=== PATIENT | female | born 1955 | race Caucasian/White ===

== ENCOUNTER 2017-04-06 10:09 | Inpatient (IN) | payer BC ==
[2017-02-26 11:56] VITALS: BMI 42.0
--- NOTE | 2017-02-26 12:21 | PAT Medication Instructions ---
Service Date Feb 26, 2017. Current Home Medication List Cholecalciferol (Vitamin D3), 1,000 UNITS PO BID Citalopram Hydrobromide (Citalopram Hydrobromide), 1 TAB PO QPM Docusate Sodium (Stool Softener), 200 MG PO QAM Lisinopril/Hctz (Zestoretic 20MG/25MG), 1 TAB PO QAM Naproxen (Naprosyn), 250 MG PO BID Psyllium (Metamucil), 1 DOSE PO QAM Medication Instructions For Your Scheduled Surgery Naproxen (Naprosyn), 250 MG PO BID (check with surgeon for instructions) - Hold the following medications the morning of surgery: Psyllium (Metamucil), 1 DOSE PO QAM Lisinopril/Hctz (Zestoretic 20MG/25MG), 1 TAB PO QAM Docusate Sodium (Stool Softener), 200 MG PO QAM Cholecalciferol (Vitamin D3), 1,000 UNITS PO BID - Take the following medications as scheduled the night before surgery: Citalopram Hydrobromide (Citalopram Hydrobromide), 1 TAB PO QPM Cholecalciferol (Vitamin D3), 1,000 UNITS PO BID If you have any questions please call us at [phone] (Claire Seals PA-C) or [phone] or [phone]
[2017-02-26 12:43] LABS: HEMATOCRIT 38.4 % (37-47); MEAN CELL VOLUME 87.9 fL (80-100); MEAN CORPUSCULAR HEMOGLOBIN 29.3 pg (25-34); MEAN CORPUSCULAR HGB CONC 33.3 g/dl (32-36); MEAN PLATELET VOLUME 8.9 fL (7.4-10.4); PLATELET COUNT 370 K/uL (130-400); RED BLOOD COUNT 4.37 M/uL (4.2-5.4); WHITE BLOOD COUNT 9.13 K/uL (4.8-10.8)
--- NOTE | 2017-02-26 12:54 | DIAGNOSTIC IMAGING REPORT ---
CHEST 2 VIEWS ROUTINE CLINICAL HISTORY: PAT preoperative evaluation COMPARISON STUDY: No previous studies for comparison. FINDINGS: The bones soft tissues and hemidiaphragms are normal. The cardiomediastinal silhouette is normal. The lungs are clear. The pulmonary vasculature is normal. IMPRESSION: Negative chest. Electronically signed by: Heron Montaño M.D. 02/26/2017 12:52 PM Dictated Date/Time: 02/26/2017 12:52 PM
[2017-02-26 12:58] LABS: PARTIAL THROMBOPLASTIN RATIO 1.2; PROTHROMBIN TIME (PATIENT) 10.3 SECONDS (9.0-12.0)
[2017-02-26 13:06] LABS: BASO % 0.8 %; BASO ABS # 0.07 K/uL (0-0.2); COMPLETE YES; EOS % 1.9 %; IG% 0.3 %; LYMPH % 29.2 %; LYMPH ABS # 2.67 K/uL (1.2-3.4); MONO % 6.6 %; NEUT % 61.2 %
[2017-02-26 13:14] LABS: BUN/CREATININE RATIO 25.2 (10-20); CALCIUM 9.2 mg/dl (8.5-10.1); CREATININE 0.79 mg/dl (0.60-1.20); POTASSIUM 4.1 mmol/L (3.5-5.1)
--- NOTE | 2017-04-03 21:59 | HISTORY & PHYSICAL EXAMINATION ---
DATE OF ADMISSION: 04/06/2017 CHIEF COMPLAINT: 1. Left hip pain. 2. Bilateral knee pain and DJD. HISTORY OF PRESENT ILLNESS: The patient is a 62-year-old female who has had a several year history of multiple lower extremity joint aches and pains. She has both knee pain and left hip. She has been managed by real estate operations manager up to this point. Pain has gotten more progressive and persistent over time. She does respond some to the knee injections. Hip has gotten worse over time. She describes groin pain and thigh pain and buttock pain. The more she walks, the more she limps. She would like to begin surgical treatment of these issues. We did have a long discussion as far as treatment, what to treat first, the knee or the hips and she has elected to proceed with total hip replacement based on my guidance. Certainly by managing her hip it may take away some of her knee pain. PAST MEDICAL HISTORY: 1. Hypertension. 2. Sleep apnea. 3. Kidney stones. 4. Obesity with a BMI of 42. PAST SURGICAL HISTORY: 1. Tubal ligation. 2. Bowel resection. 3. Lithotripsy. ALLERGIES: None. CURRENT MEDICINES: 1. Lisinopril/hydrochlorothiazide 20/25 once a day. 2. Citalopram 20 mg a day for anxiety. 3. Glucosamine chondroitin. 4. Magnesium. 5. Vitamin D3. 6. Naprosyn. 7. Metamucil. 8. Stool softener. SOCIAL HISTORY: A 62-year-old white female patient from [place]. She works as a financial legal assistant. She does not smoke. FAMILY HISTORY: Significant for diabetes, esophageal cancer, throat cancer and breast cancer. REVIEW OF SYSTEMS: Negative for diabetes, neurologic problems, vascular problems or bleeding disorders. Denies any chest pain. No shortness of breath. No history of DVT or PE. PHYSICAL EXAMINATION: GENERAL: Reveals a healthy pleasant, middle-aged female. She looks to be in pretty good health. HEENT: Benign. NECK: Supple. No lymphadenopathy. LUNGS: Clear to auscultation. HEART: Has a regular rate and rhythm. ABDOMEN: Soft, nontender, nondistended. EXTREMITIES: Grossly neurovascularly intact except as follows: Examination of both lower extremities reveals patient walks with an antalgic gait. Examination of the knees reveals valgus alignment to her right knee and small knee effusion. Range of motion is 5-125. Little crepitance with motion. Examination of the left knee reveals slight varus alignment. Tenderness medially. Small knee effusion. Range of motion 5-125. Examination of left hip reveals leg lengths to be pretty equal. She does have quite a bit of stiffness with pain with hip motion. She can internally rotate to about neutral. Negative straight leg raise. She is neurologically intact. X-RAYS: X-rays of both her left hip and both knees were reviewed. X-rays of the hip reveal advanced left hip DJD. She has complete loss of her superior joint space. Bone density looks pretty good. X-rays of the knee reveal moderate to advanced bilateral knee DJD. The right side is probably a little bit worse than the left. She has got complete loss of joint space in the lateral side in the right side. 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 Advanced left hip degenerative joint disease. 2. Bilateral knee degenerative joint disease, right side a bit worse than the left. PLAN: We talked about treatment options. We had a long discussion as far as what joint to do first and after extensive discussion, we elected to proceed with a left total hip replacement. We will take her to the operating room and do a left total hip replacement. The risks and benefits of this procedure were explained to patient including but not limited to DVT, PE, , infection, neurological injury, vascular injury, bleeding problem, pain, limited range of motion, stiffness, failure to relieve symptoms, incomplete relief of symptoms, need for further surgery in the future, fracture, leg length inequality, nerve palsy, dislocation, etc. The patient understands and desires to proceed. Informed consent was obtained. We did choose the hip as we can still conservatively manage the knee pain more successfully and more easily. As far as discharge plans, she will likely be discharged to home within the [facility] service. She knows to hold her lisinopril/hydrochlorothiazide the morning of surgery.
[2017-04-06] VITALS (14 sets, daily range): BP systolic 100–124; BP diastolic 65–83; PULSE 90–97; TEMP 34.8–37; O2SAT 92–100; Ht 167.6 cm; Wt 118.6 kg
[~2017-04-06] VITALS: Ht 167.6 cm; Wt 118.6 kg
[~2017-04-06 10:09] MED LIST: ACETAMINOPHEN 500 MG TAB PO SCH; BUPIVACAINE 0.5 % 5 MG/1 ML PF 10ML VIAL ONE; CEFAZOLIN 2000 MG/60 ML D5W 60 ML IV SCH; CHOL1CAP57 PO; CITA20TA4 PO; DOCU100C PO; FAMOTIDINE 20 MG TAB PO SCH; GABAPENTIN 300 MG CAP PO SCH; LACTATED RINGER'S 1000ML 1,000 ML IV SCH; LACTATED RINGER'S 1000ML IV SCH; LACTATED RINGER'S 500 ML IV SCH; LISI-788 PO; METOCLOPRAMIDE HCL 10 MG TAB PO SCH; MIDAZOLAM HCL 1 MG/ML 2ML VIAL ONE; NAPR1TAB48 PO; PSYL0.524 PO; SCOPOLAMINE 1.5 MG TDSY TD SCH; TRAMADOL HCL 50 MG TAB PO SCH; TRANEXAMIC ACID INJ 1,000 MG in SODIUM CHLORIDE 0.9% 100ML 100 ML IV SCH
[2017-04-06] MEDS ORDERED: PROPOFOL IV EMULSION 10 MG/ML 20 ML VIAL IV ONE ×2 (10:10→13:39)
--- NOTE | 2017-04-06 10:39 | History & Physical Bridge Note ---
H&P Re-Evaluation Bridge Note: I have examined the patient, reviewed the History & Physical and in the interval since the performance of the History & Physical I have noted the following changes of clinical significance: No changes noted
[2017-04-06] MEDS ORDERED: HYDROmorphone INJ 2 MG/ML SYR/VIAL IV PRN (12:15)
[2017-04-06] MEDS ORDERED: EpHEDrine SULFATE INJ 50 MG/ML AMP IV PRN ×2 (12:15→13:15)
[2017-04-06] MEDS ORDERED: NALOXONE HCL 0.4 MG/1 ML VIAL/CARP IV PRN ×2 (12:15→13:15)
[2017-04-06] MEDS ORDERED: PHENYLEPHRINE 100MCG/ML 5ML SYR IV PRN (12:15)
[2017-04-06] MEDS ORDERED: FENTANYL CITRATE INJ 50 MCG/1 ML 2 ML VIAL IV PRN (12:15)
[2017-04-06] MEDS ORDERED: FLUMAZENIL 0.1 MG/1 ML 10 ML VIAL IV PRN (12:15)
[2017-04-06] MEDS ORDERED: LABETALOL HCL IV 5 MG/ML 20ML IV PRN (12:15)
[2017-04-06] MEDS ORDERED: MEPERIDINE HCL 25 MG/ML CARP IV PRN ×2 (12:15→13:15)
[2017-04-06] MEDS ORDERED: ATROPINE SULFATE 0.1 MG/ML 5ML SYR IV PRN (12:15)
[2017-04-06] MEDS ORDERED: ONDANSETRON INJ 2 MG/ML 2 ML VIAL IV PRN ×2 (12:15→13:15)
[2017-04-06] MEDS ORDERED: BUPIVACAINE/EPINEPHRINE 0.5% MPF 1:200,000 30 ML VIAL ONE (12:28)
[2017-04-06] MEDS ORDERED: BACITRACIN 50000 UNIT VIAL ONE (12:28)
[2017-04-06] MEDS ORDERED: MoRPHine SULFATE PF 1 MG/ML 10 ML AMP/VIAL ONE (12:30)
[2017-04-06] MEDS ORDERED: FENTANYL CITRATE INJ 50 MCG/1 ML 2 ML VIAL ONE (12:31)
[2017-04-06] MEDS ORDERED: MIDAZOLAM HCL 1 MG/ML 2ML VIAL ONE ×2 (12:58→13:09)
[2017-04-06] MEDS ORDERED: NALOXONE HCL INJ 0.08 MG in SYRINGE 1.8 ML IV PRN (13:13)
[2017-04-06] MEDS ORDERED: SODIUM CHLORIDE 0.9% 1000ML 1,000 ML IV PRN (13:13)
[2017-04-06] MEDS ORDERED: LACTATED RINGER'S 1000ML 500 ML IV PRN (13:13)
[2017-04-06] MEDS ORDERED: NALOXONE HCL INJ 1 MG in SODIUM CHLORIDE 0.9% 1000ML 1,000 ML IV PRN (13:13)
[2017-04-06] MEDS ORDERED: NO NARCOTICS OR SEDATIVES SCH (13:15)
[2017-04-06] MEDS ORDERED: MoRPHine SULFATE PF 1 MG/ML 10 ML AMP/VIAL EPI PRN (13:15)
[2017-04-06] MEDS ORDERED: KETOROLAC TROMETHAMINE 30 MG/ML VIAL IV. PRN (13:15)
[2017-04-06] MEDS ORDERED: NALBUPHINE HCL INJ 10 MG/ML AMP IV PRN (13:15)
[2017-04-06] MEDS ORDERED: MoRPHine SULFATE 2 MG/ML CARP IV PRN (13:15)
[2017-04-06] MEDS ORDERED: DiphenhydrAMINE HCL 50 MG/ML VIAL IV PRN (13:15)
[2017-04-06] MEDS ORDERED: EpHEDrine SULFATE INJ 50 MG/ML AMP ONE (13:20)
[2017-04-06] MEDS ORDERED: PHENYLEPHRINE 100MCG/ML 5ML SYR ONE (13:39)
--- NOTE | 2017-04-06 14:35 | [facility] Post Operative Brief Note ---
Immediate Operative Summary Operative Date April 06, 2017. Pre-Operative Diagnosis Left Hip Degenerative Joint Disease Post-Operative Diagnosis Left Hip Degenerative Joint Disease Procedure(s) Performed Left Total Hip Arthroplasty Surgeon Dr. Tyson Rankin Drywall Installer Surgeon(s) Klever Colon PA-C Estimated Blood Loss 400ML Findings Left Hip DJD Fluids (cc crystalloids) 2000 cc Specimens A. Left Femoral Head Drains None Anesthesia Spinal Complication(s) None Disposition Recovery Room / PACU
[2017-04-06] MEDS ORDERED: SILVER SULFADIAZINE 1% CR 50 GM JAR EXT PRN (14:45)
[2017-04-06] MEDS ORDERED: METOCLOPRAMIDE HCL INJ 5 MG/ML 2 ML VIAL IV PRN (14:45)
[2017-04-06] MEDS ORDERED: ALUMINUM/MAGNESIUM/SIMETH (MAALOX MAX) 30 ML UDC PO PRN (14:45)
[2017-04-06] MEDS ORDERED: BISACODYL 10 MG SUPP PR PRN (14:45)
[2017-04-06] MEDS ORDERED: MAGNESIUM HYDROXIDE SUSP 30 ML UDC PO PRN (14:45)
--- NOTE | 2017-04-06 15:06 | DIAGNOSTIC IMAGING REPORT ---
LEFT PELVIS/UNILATERAL HIP 1 VIEW CLINICAL HISTORY: Postoperative evaluation. COMPARISON: None FINDINGS: Alignment of the total left hip arthroplasty is anatomic. There is an acetabular screw. Skin ryan are present. There is no periprosthetic fracture or unexpected radiopaque foreign body. Radiodense material projecting over the pelvis is of doubtful significance. IMPRESSION: Expected findings following total left hip arthroplasty. Electronically signed by: Jerry Alvarez M.D. 04/06/2017 3:05 PM Dictated Date/Time: 04/06/2017 3:03 PM
--- NOTE | 2017-04-06 15:09 | Anesthesiology Progress Note ---
Anesthesia Post Op Note Date & Time April 06, 2017 at 15:09 Vital Signs Pain Intensity: 0 Vital Signs Past 12 Hours Date Time Temp Pulse Resp B/P Pulse Ox O2 Delivery O2 Flow Rate FiO2 04/06/17 15:05 93 18 120/81 95 Nasal Cannula 2 04/06/17 14:55 100 16 95/68 98 Nasal Cannula 2 04/06/17 14:45 97 16 111/66 99 Nasal Cannula 2 04/06/17 14:37 36.1 102 14 112/83 96 Nasal Cannula 2 04/06/17 10:37 37 90 18 124/83 97 Room Air Notes Mental Status: alert / awake / arousable, participated in evaluation Pt Amnestic to Procedure: Yes Nausea / Vomiting: adequately controlled Pain: adequately controlled Airway Patency, RR, SpO2: stable & adequate BP & HR: stable & adequate Hydration State: stable & adequate Anesthetic Complications: no major complications apparent
[2017-04-06] MEDS: D5W AND 1/2NSS + 20MEQ KCL 1,000 ML IV SCH ×2 (16:38→21:33)
[2017-04-06] MEDS: CHECK SCOPOLAMINE PATCH PLACEMENT SCH ×2 (16:38→23:35)
[2017-04-06] MEDS ORDERED: TRANEXAMIC ACID INJ 1,000 MG in SODIUM CHLORIDE 0.9% 100ML 100 ML IV ONE (18:00)
[2017-04-06] MEDS: FERROUS GLUCONATE 324 MG TAB PO SCH (18:09)
[2017-04-06] MEDS: KETOROLAC TROMETHAMINE 30 MG/ML VIAL IV. SCH ×2 (18:26→23:35)
[2017-04-06] MEDS: CEFAZOLIN IV 2,000 MG in DEXTROSE 5% 50ML 50 ML IV SCH (19:01)
--- NOTE | 2017-04-06 20:07 | PROGRESS NOTE ---
DATE: 04/06/2017 SUBJECTIVE: A 62-year-old female postop from a left total hip replacement. She is doing well. Not had any pain yet. No chest pain or shortness of breath. Not feeling dizzy or lightheaded. OBJECTIVE: VITAL SIGNS: Temperature 36.5. Vital signs stable. GENERAL: Reveals a pleasant, middle-aged female. She is sitting up in her bed and talking to her family. She looks comfortable. LUNGS: Clear to auscultation. HEART: Regular rate and rhythm. ABDOMEN: Soft, nontender, nondistended. EXTREMITIES: Grossly neurovascularly intact except as follows: Examination of the left lower extremity reveals the leg to be well aligned. Dressing is clean, dry and intact. She can dorsiflex and plantarflex her foot appropriately. She is neurologically intact. X-RAYS: X-rays of the left hip from recovery room were reviewed. It shows a left uncemented total hip arthroplasty. Components looked to be in good position. No signs of problems. ASSESSMENT: A 62-year-old female postop from a left hip replacement, doing well. Pain is controlled. She is neurologically intact. Hip is located. PLAN: 1. DVT prophylaxis including thigh-high TEDs, SCDs, and aspirin twice a day. 2. PT/OT. Weightbearing as tolerated. Left total hip protocol. 3. Pain control, doing well with current pain regimen. 4. IV antibiotics x24 hours. 5. Disposition: She is waiting to see how she does. She is interested in trying to go to [facility] for rehabilitation visit. Will check with social insurance analyst tomorrow to see what her coverage is in the likelihood of that.
[2017-04-06] MEDS ORDERED: DOCUSATE SODIUM 100 MG CAP PO SCH (21:00)
[2017-04-06] MEDS: CITALOPRAM 20 MG TAB PO SCH (21:32)
[2017-04-06] MEDS: ACETAMINOPHEN 500 MG TAB PO SCH (21:32)
[2017-04-06] MEDS: CHOLECALCIFEROL 1000 INTER.UNIT TAB PO SCH (21:32)
[2017-04-06] MEDS: ASPIRIN 325 MG ECTAB PO SCH (21:33)
[2017-04-07] VITALS (14 sets, daily range): BP systolic 105–145; BP diastolic 65–77; PULSE 85–94; TEMP 36.5–36.8; O2SAT 93–98
[2017-04-07] MEDS: CEFAZOLIN IV 2,000 MG in DEXTROSE 5% 50ML 50 ML IV SCH (01:36)
--- NOTE | 2017-04-07 02:45 | OPERATIVE REPORT ---
DATE OF OPERATION: 04/06/2017 SURGEON: Tyson Rankin MD. DATA WAREHOUSING MANAGER: ANAID Mccord. PREOPERATIVE DIAGNOSIS: Left hip degenerative joint disease. POSTOPERATIVE DIAGNOSIS: Same. PROCEDURE PERFORMED: Left uncemented ceramic highly cross-linked polyethylene total hip arthroplasty. COMPLICATIONS: None. ESTIMATED BLOOD LOSS: 400 mL FLUID REPLACEMENT: 2000 mL crystalloid fluid replacement. ANESTHESIA: Duramorph spinal. DRAINS: None. SPECIMEN: Left femoral head sent for pathology. OPERATIVE INDICATIONS: The patient is a 62-year-old female who has had a very long history of multiple lower extremity muscle aches, pains and arthritic symptoms. She has been managed by rural sociologist with pretty aggressive treatment over the years. This has failed overtime. She has had both hip and knee arthritis. The left hip seemed to be the worse and she has elected to proceed with total hip arthroplasty. OPERATIVE FINDINGS: Operative findings revealed advanced left hip DJD. She had grade 4 [id number] disease of the femoral head and acetabulum. She had a moderate size joint effusion. She had a large medial osteophyte. OPERATIVE IMPLANTS: Operative implants consisted of: 1. Biomet G7 size 54 mm acetabular shell. 2. 6.5 cancellous acetabular screws, 1 of 35 mm length and 1 of 20 mm length. 3. An apex hole eliminator. 4. A highly cross-linked polyethylene liner with a 54 mm outer diameter and 36 mm inner diameter. 5. DePuy size 1.5/36 mm ceramic articular ball. 6. DePuy size 16.5 small stature femoral stem. OPERATIVE PROCEDURE: The patient taken to the operating room, identified and placed on the operating table in supine position. All contact areas were appropriately padded. IV antibiotics were provided by anesthesia team. A spinal anesthetic had been implemented in the holding area. A Zhao catheter was placed in sterile fashion. The patient was then placed in the right lateral decubitus position. An axillary roll was placed. Stulberg hip positioner was used for positioning. The left hip and leg were then prepped and draped in usual sterile fashion. A posterolateral approach to the left hip was then performed through a curvilinear incision centered over the greater trochanter. Sharp dissection was carried through the subcutaneous tissues down to level of the IT band and gluteal fascia. The IT band and gluteal fascia were then incised longitudinally in line with the skin incision. The piriformis and external rotators were very carefully tagged and taken off the posterior aspect of the hip capsule. Great care was taken throughout the procedure to protect the sciatic nerve at all times. A posterior capsulotomy was then performed, leaving a large flap for later repair. Hip was internally rotated and dislocated. Femoral neck osteotomy cut was made with the final cut about 10 mm above the lesser trochanter. Femoral head was removed and sent for pathology. The femur was retracted anteriorly. Attention was then drawn to the acetabulum. The acetabular labrum was excised. The pulvinar fat was excised. Sequential reaming of the acetabulum was then performed beginning with a size 47 and progressing up to a 53. A 54 mm Biomet G7 acetabular shell was then placed in about 40 degrees of lateral opening and 20-25 degrees of anteversion. It was fixed with two 6.5 cancellous acetabular screws. A trial liner was placed. Attention was then drawn to the femur. The proximal femur was entered with a cookie cutter, followed by canal finder and lateralizing reamer. Sequential reaming of the femur was then performed beginning with a size 9 and progressing up to a 16. We started getting chattered at about 14. I made the decision to go to the 16.5 as I wanted to make sure we got good contact and that is what her preoperative x-ray is templated to. We then broached beginning with a size 12 small broach and progressing to a 16.5. We could not quite get the 16.5 broach down to the calcar cut. We then trialed different neck lengths. The hip was fully stable with all neck lengths but I felt that the +5 was a little bit too long. We used the +1.5 articular ball. The hip was fully stable in full extension and external rotation, flexion to 90 degrees, internal rotation over [address] We elected to place these implants. All trial implants were removed. An apex hole eliminator was placed. Highly cross-linked polyethylene liner was placed. A 16.5 small stature AML femoral stem was placed. I did end up reaming down the canal with a 16.5 reamer as it was extremely tight. A +1.5/36 mm ceramic articular ball was placed. Hip was located. It was taken through range of motion, once again found to be stable. Attention was then drawn toward closing. The wound was irrigated with copious amounts of pulsatile lavage solution. I did inject locally with 60 mL of 0.5% Marcaine with epinephrine. The posterior capsule and external rotators were repaired through drill holes in the posterior trochanter with #2 Ti-Cron suture. The IT band and gluteal fascia were then closed with #1 PDS suture in running fashion. The subcutaneous tissues were then closed with 2 layers with the deep layer with #2 Vicryl suture in a buried interrupted fashion. The subcutaneous tissues were then closed with 2-0 Dexon suture in a buried interrupted fashion. The skin was closed with skin ryan. The leg was then cleaned and dried, and a sterile dressing of Xeroform, 4 x 4's, ABD pad, and foam tape was applied. The patient was then transferred to the recovery room in stable condition. The patient tolerated the procedure well with no complications. All needle and sponge counts were correct at the end of the operation. I attest to the content of the Intraoperative Record and any orders documented therein. Any exceptio ns are noted below.
[2017-04-07] MEDS: D5W AND 1/2NSS + 20MEQ KCL 1,000 ML IV SCH ×2 (04:35→11:27)
[2017-04-07] MEDS: ACETAMINOPHEN 500 MG TAB PO SCH ×3 (05:58→21:24)
[2017-04-07] MEDS: KETOROLAC TROMETHAMINE 30 MG/ML VIAL IV. SCH ×4 (05:58→23:53)
[2017-04-07 06:18] LABS: HEMATOCRIT 30.9 % (37-47); MEAN CELL VOLUME 89.6 fL (80-100); MEAN CORPUSCULAR HEMOGLOBIN 29.3 pg (25-34); MEAN CORPUSCULAR HGB CONC 32.7 g/dl (32-36); MEAN PLATELET VOLUME 8.8 fL (7.4-10.4); PLATELET COUNT 314 K/uL (130-400); RED BLOOD COUNT 3.45 M/uL (4.2-5.4); WHITE BLOOD COUNT 11.95 K/uL (4.8-10.8)
[2017-04-07] MEDS ORDERED: DC INTRASPINAL MORPHINE ONE (06:30)
[2017-04-07] MEDS ORDERED: MoRPHine SULFATE 2 MG/ML CARP IV PRN (06:30)
[2017-04-07] MEDS ORDERED: OXYCODONE HCL IR 5 MG TAB (IMMEDIATE RELEASE) PO PRN (06:30)
[2017-04-07] MEDS ORDERED: ONDANSETRON INJ 2 MG/ML 2 ML VIAL IV PRN (06:30)
[2017-04-07] MEDS ORDERED: ZOLPIDEM TARTRATE 5 MG TAB PO PRN (06:30)
[2017-04-07 06:56] LABS: BASO % 0.4 %; BASO ABS # 0.05 K/uL (0-0.2); COMPLETE YES; EOS % 0.5 %; IG% 0.3 %; LYMPH % 18.3 %; LYMPH ABS # 2.19 K/uL (1.2-3.4); MONO % 8.9 %; NEUT % 71.6 %
[2017-04-07 06:59] LABS: BUN/CREATININE RATIO 20.3 (10-20); CREATININE 1.1 mg/dl (0.60-1.20)
[2017-04-07] MEDS: CHECK SCOPOLAMINE PATCH PLACEMENT SCH ×3 (08:09→23:53)
[2017-04-07] MEDS: PSYLLIUM 58.6% PWD PACK S\\F PO SCH (08:10)
[2017-04-07] MEDS: ASPIRIN 325 MG ECTAB PO SCH ×2 (08:10→21:07)
[2017-04-07] MEDS: MULTIVITAMIN TAB PO SCH (08:11)
[2017-04-07] MEDS: PANTOprazole SOD 40 MG TAB PO SCH (08:11)
[2017-04-07] MEDS: FERROUS GLUCONATE 324 MG TAB PO SCH ×3 (08:11→17:57)
[2017-04-07] MEDS: CHOLECALCIFEROL 1000 INTER.UNIT TAB PO SCH ×2 (08:12→21:07)
[2017-04-07] MEDS: DOCUSATE SODIUM 100 MG CAP PO SCH (08:12)
--- NOTE | 2017-04-07 08:14 | Anesthesiology Progress Note ---
Anesthesia Post Op Note Date & Time April 07, 2017 at 08:11 (Sonny Sanchez, LEO) Vital Signs Pain Intensity: 0.0 Vital Signs Past 12 Hours Date Time Temp Pulse Resp B/P Pulse Ox O2 Delivery O2 Flow Rate FiO2 04/07/17 07:19 36.8 85 16 110/73 94 Room Air 04/07/17 06:26 17 95 04/07/17 06:05 96 Room Air 04/07/17 05:50 18 96 04/07/17 04:50 17 97 04/07/17 03:50 18 96 04/07/17 03:13 36.5 86 18 107/72 98 Nasal Cannula 2.0 04/07/17 02:50 18 95 04/07/17 01:50 16 96 04/07/17 00:50 15 95 04/06/17 23:50 16 95 04/06/17 23:30 Nasal Cannula 2.0 04/06/17 23:03 36.6 97 18 120/73 97 Nasal Cannula 2.0 04/06/17 22:50 16 94 04/06/17 21:50 17 96 04/06/17 20:50 18 97 (Sonny Sanchez, LEO) Notes Mental Status: alert / awake / arousable, participated in evaluation Pt Amnestic to Procedure: Yes Nausea / Vomiting: adequately controlled Pain: adequately controlled Airway Patency, RR, SpO2: stable & adequate BP & HR: stable & adequate Hydration State: stable & adequate Neuraxial Anesthesia: sensory block resolved Anesthetic Complications: no major complications apparent Patient complained of generalized puritis on operative day. Patient states that "itchiness persists but is less than it was over night". Discussed with the patient that it may be a possible side effect of intrathecal morphine that should subside. Will reassess if puritis persists. (Sonny Sanchez, LEO)
[2017-04-07] MEDS: TAPENTADOL ER 50 MG TABCR PO SCH ×2 (08:15→21:07)
[2017-04-07] MEDS ORDERED: NURSING VERBAL MED ORDER ONE (09:00)
[2017-04-07] MEDS ORDERED: ACET-1138 PO (12:36)
[2017-04-07] MEDS ORDERED: RXC5 PO (12:36)
[2017-04-07] MEDS ORDERED: FRRG PO (12:36)
[2017-04-07] MEDS ORDERED: ASPEC325 PO (12:36)
--- NOTE | 2017-04-07 12:38 | Discharge Instructions ---
Discharge Instructions Date of Service April 07, 2017. Admission Reason for Admission: Left Hip Degenerative Joint Disease, Osteoarthriti Discharge Discharge Diagnosis / Problem: Left Hip Replacement Discharge Goals Goal(s): Decrease discomfort, Improve function, Increase independence, Improve disease control, Therapeutic intervention Activity Recommendations Activity Limitations: per Instructions/Follow-up section (Total HIp PRecautions ) Weightbearing Status: Left weightbearing . Instructions / Follow-Up Instructions / Follow-Up ACTIVITY RECOMMENDATIONS: Physical Therapy: * Aggressive physical therapy is not usually needed. You will learn to take care of yourself safely and walk. * Follow the "Hip Precautions Instructions." * In some cases, the criminal justice social worker at the hospital will arrange to have a therapist come to your house for the first couple of weeks to help you learn these skills. * You need to practice on your own or with the help of a family member as needed. * When you learn these skills, most of the therapy can be done on your own. Home Exercise: * You were shown a series of exercises in the hospital. Do these exercises three to four times each day including the exercises you were shown in physical therapy. Walking: * Get up and walk several times each day. For the first four weeks, try not to stand or walk for more than one hour at a time. If you do stand or walk for more than one hour, you will not hurt anything, but your leg will likely swell. * As you feel comfortable, you may change from the walker or crutches to a cane and then to independent walking. MEDICATIONS: New Medicine: * You will likely be taking one or more of these medicines: 1. Oxycodone - Take, as directed, when you need it, every four to six hours to control your pain. 2. Iron Sulfate - Take three times each day for the month after surgery to help you replace the blood lost during surgery. 3. Aspirin - Thins your blood to lessen the chance of forming a blood clot. * The most common side effects of pain medicine and iron are nausea and constipation. If nausea or constipation is too much of a problem or if you have any questions about your new medicines or doses, call [facility] at . We will try to help you manage these issues. VERY IMPORTANT TO READ AND REVIEW" Pain: * The immediate post-operative period after hip replacement surgery is often quite painful. * You are given a prescription for pain medicine. You should take it, as directed, when you need it, especially before physical therapy and before going to bed. Pain that interferes with sleep is very common and can last several months. * You will likely need pain medicine for the first two to four weeks. It will not stop all of the pain. The pain will lessen and as you feel better, you may change to milder pain medicine such as Tylenol. * The most common side effects of pain medicine are nausea and constipation, so don't take more than you need. SPECIAL CARE INSTRUCTIONS: TEDs/Elastic Stockings: * The white elastic stockings help limit swelling and prevent blood clots from forming in your legs. The more you wear them, the more they work. * Wear them for six weeks. Prevention of Infection: * Take antibiotics one hour before any dental cleaning, dental work, urological procedure, gastrointestinal procedure or any invasive surgery in order to prevent your new joint from getting infected. * You may get the antibiotics from the doctor performing the procedure or you may call our office at before and we will call in a prescription to the pharmacy of your choice. Things to Watch For: * Drainage from the incision site that occurs more than one week after your surgery. * Severely increased leg pain or swelling. * Increased redness at the incision site. * Fever above 102 degrees Fahrenheit. * Unusual chest pain or shortness of breath. * Unusual pain or burning with urination. Call [facility] at with any of the above problems or if you have any questions about your medicines or recovery. FOLLOW UP VISIT: Make an appointment to see your doctor for approximately two weeks after surgery for a progress check and staple removal by calling the office at . Current Hospital Diet Patient's current hospital diet: Regular Diet Discharge Diet Recommended Diet: Regular Diet Procedures Procedures Performed: Left Total Hip Arthroplasty Pending Studies Studies pending at discharge: no Medical Emergencies . Who to Call and When: Medical Emergencies: If at any time you feel your situation is an emergency, please call 1 immediately. . Non-Emergent Contact Non-Emergency issues call your: Surgeon . "Provider Documentation" section prepared by Tyson Rankin. . VTE Core Measure Inpt VTE Proph given/why not?: Other Anticoagulation, T.E.D. Stockings, SCD's
--- NOTE | 2017-04-07 12:46 | PROGRESS NOTE ---
DATE: 04/07/2017 SUBJECTIVE: 62-year-old white female postop day 1 from a left hip replacement surgery. She is doing well. Really does not complain of much pain, just some soreness. No chest pain or shortness of breath. Not feeling dizzy or lightheaded. OBJECTIVE: VITAL SIGNS: Temperature 36.8. Vital signs stable. PHYSICAL EXAMINATION: GENERAL: Reveals a healthy pleasant, middle-aged female. She is sitting up in her bedside chair and looks pretty comfortable. LUNGS: Clear to auscultation. HEART: Regular rate and rhythm. ABDOMEN: Soft, nontender, nondistended. EXTREMITIES: Grossly neurovascularly intact except as follows: Examination of left hip and leg reveals the dressing to be clean, dry and intact. Hip is located. She is neurologically intact. LABORATORY DATA: Hemoglobin 10.1. Hematocrit 30.9. White cell count 11.95. Electrolytes stable. Sodium slightly low at 130. ASSESSMENT: 62-year-old white female postop day 1 from left total hip replacement, doing pretty well. Pain is controlled. Hip is located. She is neurologically intact. PLAN: 1. DVT prophylaxis including thigh-high TEDs, SCDs, and aspirin twice a day. 2. PT/OT. She can weightbear as tolerated. 3. Pain control, doing well with current pain regimen. 4. Disposition. She is hoping to go to [facility] for a brief rehab stay. She has a lot of steps at home and does not think that she will be able to manage that initially.
[2017-04-07] MEDS: CITALOPRAM 20 MG TAB PO SCH (21:07)
[2017-04-08] MEDS: KETOROLAC TROMETHAMINE 30 MG/ML VIAL IV. SCH ×2 (05:37→12:46)
[2017-04-08] MEDS: ACETAMINOPHEN 500 MG TAB PO SCH ×3 (05:38→21:52)
--- NOTE | 2017-04-08 07:37 | PROGRESS NOTE ---
DATE: 04/08/2017 DATE: 04/08/2017. SUBJECTIVE: A 62-year-old white female postop day 2 from left hip replacement. She is doing pretty well. He says she has really not had much pain. No chest pain or shortness of breath. Not feeling dizzy or lightheaded. OBJECTIVE: VITAL SIGNS: Temperature is 36.8. Vital signs stable. PHYSICAL EXAMINATION: GENERAL: Reveals a healthy, pleasant middle-aged female. I really had to wake her this morning, she was sleeping pretty deeply. LUNGS: Clear to auscultation. HEART: Has a regular rate and rhythm. ABDOMEN: Soft, nontender, nondistended. EXTREMITY EXAMINATION: Grossly neurovascularly intact except as follows: Examination of the left hip and leg reveals the dressing to be clean, dry and intact. Hip is located. She is neurologically intact. ASSESSMENT: A 62-year-old white female postop day 2 from left hip replacement, doing pretty well. Pain is controlled. She is neurologically intact. Hip is located. PLAN: 1. DVT prophylaxis including thigh-high TEDs, SCDs, and aspirin twice a day. 2. PT/OT. Weightbearing as tolerated. Left total hip protocol. 3. Pain control. Doing pretty well with current pain regimen. 4. Disposition. She is hoping to be discharged to [facility] for a brief rehab stay. We will see if she gets approved and accepted.
[2017-04-08 07:45] VITALS: BP 113/70; PULSE 82; TEMP 36.6; O2SAT 92
[2017-04-08] MEDS: PSYLLIUM 58.6% PWD PACK S\\F PO SCH (10:17)
[2017-04-08] MEDS: PANTOprazole SOD 40 MG TAB PO SCH (10:17)
[2017-04-08] MEDS: FERROUS GLUCONATE 324 MG TAB PO SCH ×3 (10:17→17:44)
[2017-04-08] MEDS: DOCUSATE SODIUM 100 MG CAP PO SCH (10:18)
[2017-04-08] MEDS: TAPENTADOL ER 50 MG TABCR PO SCH ×2 (10:22→20:55)
[2017-04-08] MEDS: MULTIVITAMIN TAB PO SCH (12:43)
[2017-04-08] MEDS: ASPIRIN 325 MG ECTAB PO SCH ×2 (12:43→20:56)
[2017-04-08] MEDS: CHOLECALCIFEROL 1000 INTER.UNIT TAB PO SCH ×2 (14:05→20:56)
[2017-04-08 15:07] VITALS: BP 130/79; PULSE 88; TEMP 36.8; O2SAT 94
[2017-04-08] MEDS: CITALOPRAM 20 MG TAB PO SCH (20:56)
[2017-04-08 23:00] VITALS: BP 114/70; PULSE 90; TEMP 37.1; O2SAT 94
[2017-04-09] MEDS: ACETAMINOPHEN 500 MG TAB PO SCH (05:19)
[2017-04-09 06:37] VITALS: BP 129/77; PULSE 89; TEMP 36.8; O2SAT 94
[2017-04-09] MEDS: PSYLLIUM 58.6% PWD PACK S\\F PO SCH (07:19)
[2017-04-09] MEDS: CHOLECALCIFEROL 1000 INTER.UNIT TAB PO SCH (07:21)
[2017-04-09] MEDS: MULTIVITAMIN TAB PO SCH (07:21)
[2017-04-09] MEDS: TAPENTADOL ER 50 MG TABCR PO SCH (07:21)
[2017-04-09] MEDS: ASPIRIN 325 MG ECTAB PO SCH (07:21)
[2017-04-09] MEDS: FERROUS GLUCONATE 324 MG TAB PO SCH (07:22)
[2017-04-09] MEDS: PANTOprazole SOD 40 MG TAB PO SCH (07:22)
[2017-04-09] MEDS: DOCUSATE SODIUM 100 MG CAP PO SCH (07:22)
--- NOTE | 2017-04-09 07:56 | PROGRESS NOTE ---
DATE: 04/09/2017 SUBJECTIVE: A 62-year-old white female postop day 3 from a left total hip replacement. She is doing well. Pain is controlled. No chest pain or shortness of breath. Not feeling dizzy or lightheaded. OBJECTIVE: VITAL SIGNS: Temperature 36.8. Vital signs stable. PHYSICAL EXAMINATION: GENERAL: Reveals a healthy, pleasant middle-aged female. She was walking around in her room with a walker when I visited her this morning. LUNGS: Clear to auscultation. HEART: Regular rate and rhythm. ABDOMEN: Soft, nontender, nondistended. EXTREMITIES: Grossly neurovascularly intact except as follows: Examination of the left hip and leg reveals the dressing to be clean, dry and intact. Hip is located. She is neurologically intact. Pain is controlled. PLAN: 1. DVT prophylaxis including thigh-high TEDs, SCDs, and aspirin twice a day. 2. PT/OT. Weightbearing as tolerated. Left total hip protocol. 3. Pain control, doing well with current pain regimen. 4. Disposition: Hoping to be discharged to [facility]. If she does not get in there, she is likely to go to [facility]. She will be there for a brief rehab stay.
[2017-04-09 10:58] VITALS: BP 129/77; PULSE 89; TEMP 36.8; O2SAT 94
--- NOTE | 2017-04-14 16:34 | DISCHARGE SUMMARY ---
ADMITTING PHYSICIAN AND SURGEON: Dr. Rankin. ADMITTING DIAGNOSIS: Left hip degenerative joint disease. SURGERY PERFORMED: Left total hip arthroplasty. SECONDARY DIAGNOSES: Includes hypertension, sleep apnea, kidney stones, obesity. CONSULTS: None obtained. HISTORY AND PHYSICAL EXAMINATION: Well documented in the patient's chart. HOSPITAL COURSE: The patient was admitted on 04/06/2017 underwent total hip arthroplasty, tolerated the procedure well. There were no complications. She was transferred to the PACU postoperatively and later to the orthopedic floor for further care. She was given Ancef for antibiotic prophylaxis, YON stockings, SCDs and aspirin for DVT prophylaxis. Her hemoglobin, hematocrit and vital signs were monitored during her hospital stay and remained stable. She developed some postoperative anemia with a hemoglobin down to 10.1 and did not require any blood transfusions. There were no complications. By postoperative day 3, she was tolerating a regular diet, pain was controlled with oral pain medicine. She was participating in physical therapy and had no signs or symptoms of deep vein thrombosis. On postop day 3, she was discharged home and set up with home health services. He was given printed discharge instructions including prescriptions for extra strength Tylenol, aspirin 325 mg b.i.d., iron supplement and oxycodone. Continue her home medicines. Continue physical therapy, weightbearing as tolerated. YON stockings, total hip precautions and follow up in 10-12 days or sooner if there are problems or concerns.
== END 2017-04-09 12:50 | disposition home health service (06) | DRG 470 ==
LOC: ENRESERVTM → ENRESERVDT → C.ACU 10:09 → C.3E 10:55
PROVIDERS: ADMIT Orthopaedic Surgery Sports Medicine; ATTEND Orthopaedic Surgery Sports Medicine
PROC: 0SRB04A Replacement of Left Hip Joint with Ceramic on Polyethylene Synthetic Substitute, Uncemented, Open Approach (ICD-10-PCS; principal; 2017-04-06 12:40)
DX: M16.12 Unilateral primary osteoarthritis, left hip (principal); Z68.41 Body mass index [BMI] 40.0-44.9, adult; I10 Essential (primary) hypertension; G47.30 Sleep apnea, unspecified; E66.01 Morbid (severe) obesity due to excess calories; M17.0 Bilateral primary osteoarthritis of knee; F41.9 Anxiety disorder, unspecified; M54.10 Radiculopathy, site unspecified; L29.9 Pruritus, unspecified; T40.2X5A Adverse effect of other opioids, initial encounter; Y92.234 Operating room of hospital as the place of occurrence of the external cause; Z79.899 Other long term (current) drug therapy; Z79.1 Long term (current) use of non-steroidal anti-inflammatories (NSAID)

== ENCOUNTER → 2017-10-11 | Outpatient (CLI) | payer BC ==
[~2017-10-11] MED LIST changes: +ACET-1138 PO; -ACETAMINOPHEN 500 MG TAB PO SCH; +ASPEC325 PO; -BUPIVACAINE 0.5 % 5 MG/1 ML PF 10ML VIAL ONE; -CEFAZOLIN 2000 MG/60 ML D5W 60 ML IV SCH; -FAMOTIDINE 20 MG TAB PO SCH; +FRRG PO; -GABAPENTIN 300 MG CAP PO SCH; -LACTATED RINGER'S 1000ML 1,000 ML IV SCH; -LACTATED RINGER'S 1000ML IV SCH; -LACTATED RINGER'S 500 ML IV SCH; -METOCLOPRAMIDE HCL 10 MG TAB PO SCH; -MIDAZOLAM HCL 1 MG/ML 2ML VIAL ONE; +RXC5 PO; -SCOPOLAMINE 1.5 MG TDSY TD SCH; -TRAMADOL HCL 50 MG TAB PO SCH; -TRANEXAMIC ACID INJ 1,000 MG in SODIUM CHLORIDE 0.9% 100ML 100 ML IV SCH
[2017-10-11 09:54] LABS: PATIENT HEIGHT 167.6 cm
[2017-10-11 10:43] LABS: HEMATOCRIT 38.4 % (37-47); MEAN CELL VOLUME 89.5 fL (80-100); MEAN CORPUSCULAR HEMOGLOBIN 29.4 pg (25-34); MEAN CORPUSCULAR HGB CONC 32.8 g/dl (32-36); MEAN PLATELET VOLUME 9.1 fL (7.4-10.4); PLATELET COUNT 411 K/uL (130-400); RED BLOOD COUNT 4.29 M/uL (4.2-5.4); WHITE BLOOD COUNT 8.11 K/uL (4.8-10.8)
[2017-10-11 11:11] LABS: URINE APPEARANCE CLOUDY (CLEAR); URINE BILIRUBIN NEG (NEG); URINE COLOR YELLOW; URINE EPITHELIAL CELL AUTO >30 /lpf (0-5); URINE NITRITE NEG (NEG); URINE SPECIFIC GRAVITY 1.016 (1.000-1.030); UROBILINOGEN NEG (NEG)
[2017-10-11 11:14] LABS: MANUAL MICROSCOPIC REQUIRED? NO; REVIEW REQ? NO
[2017-10-11 11:27] LABS: ALT/SGPT 19 U/L (12-78); AST/SGOT 8 U/L (15-37); BLOOD UREA NITROGEN 24 mg/dl (7-18); BUN/CREATININE RATIO 24.3 (10-20); CALCIUM 9.1 mg/dl (8.5-10.1); CARBON DIOXIDE 27 mmol/L (21-32); CHLORIDE 98 mmol/L (98-107); CREATININE 0.99 mg/dl (0.60-1.20); GLUCOSE 103 mg/dl (70-99); POTASSIUM 3.7 mmol/L (3.5-5.1); SODIUM 134 mmol/L (136-145)
[2017-10-11 11:30] LABS: ALB/GLOB RATIO 0.9 (0.9-2); ALKALINE PHOSPHATASE 82 U/L (45-117)
[2017-10-11 11:42] LABS: URINE PROTIEN/CREAT RATIO 0.2 (0-0.2)
[2017-10-11 11:43] LABS: URINE TOTAL PROTEIN 18.4 mg/dl (0-11.9)
[2017-10-11 12:09] LABS: CREATININE 1.01 mg/dl (0.6-1.2); URINE TOTAL PROTEIN CALC 266.8 mg/24 hr (0-149.1)
== END | disposition home or self-care (01) ==
LOC: C.LAB1850 09:38
PROVIDERS: ATTEND Internal Medicine Nephrology
DX: M17.0 Bilateral primary osteoarthritis of knee (principal); I12.9 Hypertensive chronic kidney disease with stage 1 through stage 4 chronic kidney disease, or unspecified chronic kidney disease; N18.3 Chronic kidney disease, stage 3 (moderate)

== ENCOUNTER 2023-03-09 10:05 | Observation (INO) ==
--- NOTE | 2023-02-01 14:13 | PAT Medication Instructions ---
Medication Instructions Date of Service February 01, 2023 Home Medications Medication List: amoxicillin 500 mg tablet 2,000 mg PO UD PRN dental appointments atorvastatin 20 mg tablet 20 mg PO HS citalopram 40 mg tablet 40 mg PO HS docusate sodium 100 mg capsule 200 mg PO QAM lisinopril 20 mg-hydrochlorothiazide 25 mg tablet 1 tab PO QAM magnesium 250 mg tablet 250 mg PO HS meloxicam 15 mg tablet 15 mg PO QAM multivitamin 1 tab PO QAM psyllium husk 3.4 gram/5.4 gram oral powder (Metamucil) 1 tbsp PO QAM ASK your surgeon for instructions meloxicam 15 mg tablet 15 mg PO QAM ASK your prescriber and surgeon amoxicillin 500 mg tablet 2,000 mg PO UD PRN dental appointments DO NOT take the morning of surgery docusate sodium 100 mg capsule 200 mg PO QAM lisinopril 20 mg-hydrochlorothiazide 25 mg tablet 1 tab PO QAM multivitamin 1 tab PO QAM psyllium husk 3.4 gram/5.4 gram oral powder (Metamucil) 1 tbsp PO QAM Take evening before surgery magnesium 250 mg tablet 250 mg PO HS atorvastatin 20 mg tablet 20 mg PO HS citalopram 40 mg tablet 40 mg PO HS Other Notes If you have any questions please call us at [phone] or [phone] or [phone] or [phone]
--- NOTE | 2023-02-08 08:58 | Anesthesiology Consultation ---
Date of Service February 08, 2023 Assessment & Plan (1) Encounter for pre-operative examination: Chart Review Chart Review: Acceptable Risk for Surgery and Patient seen in Pre Admission Testing Pt currently scheduled as 23 hours observation. If surgeon decides to change patient to Same Day Joint, patient would be acceptable risk for TKA, pending patient is motivated, has good support and surgeon's office completes Same Day Joint Program preop requirements. Per PAT appt on 02/08/23, patient denies any recent travel or large group activities. Pt is vaccinated for Covid. Will leave to surgeon's discretion if preop Covid testing needed. Educated on importance of using Covid precautions one week prior to surgery Teaching & Discussion Pre-Anesthesia Teaching/Discussion Notes: Instructed NPO after midnight before surgery,except medications with 15 cc of water. Medication instructions provided according to the PAT guidelines. History Surgery Operation Date: 03/09/23 10:40 Proposed Procedures p Right Total Knee Arthroplasty - Tyson Rankin MD Height/Weight Height: 5 ft 6 in Weight: 110.3 kg Allergies Allergy/AdvReac Type Severity Reaction Status Date / Time No Known Allergies Allergy Verified 02/01/23 12:27 Medications Home Medications Medication Instructions Recorded Confirmed Last Taken amoxicillin 500 mg tablet 2,000 mg PO UD PRN dental 02/01/23 02/01/23 Unknown appointments atorvastatin 20 mg tablet 20 mg PO HS 02/01/23 02/01/23 Unknown citalopram 40 mg tablet 40 mg PO HS 02/01/23 02/01/23 Unknown docusate sodium 100 mg capsule 200 mg PO QAM 02/01/23 02/01/23 Unknown lisinopril 20 1 tab PO QAM 02/01/23 02/01/23 Unknown mg-hydrochlorothiazide 25 mg tablet magnesium 250 mg tablet 250 mg PO HS 02/01/23 02/01/23 Unknown meloxicam 15 mg tablet 15 mg PO QAM 02/01/23 02/01/23 Unknown multivitamin 1 tab PO QAM 02/01/23 02/01/23 Unknown psyllium husk 3.4 gram/5.4 gram 1 tbsp PO QAM 02/01/23 02/01/23 Unknown oral powder (Metamucil) Past Medical History Medical History Hx of diverticulitis of colon No recent issues Hyperlipidemia Hypertension Kidney stones History-no recent issues Osteoarthritis Exercise / Class Metabolic Activity II 4-5 Yardwork/Stairs/Walk up hill (one flight of stairs - no chest pain or SOB) Past Family History Family History Other No family history of adverse response to anesthesia Past Surgical History Surgical History History of bowel resection (2014) s/p acute diverticulitis/bowel obstruction (~2014 in [facility]) History of colonoscopy History of esophagogastroduodenoscopy (EGD) History of lithotripsy Status post left hip replacement Past Anesthesia History No Hx of Anesthesia Complications and No Family Hx of Anesthesia Complications History of PONV No Hx of PONV and No Hx of Motion Sickness Social History Smoking Status: Never smoker Do You Dip or Chew Tobacco: No Hx Alcohol Use: No Hx Substance Use: No substance use type: does not use Review of Systems Hx of snoring - no hx of completed sleep study Patient denies chest pain, shortness of breath, dyspnea on exertion, reflux, cough, wheezing, palpitations. No hx of seizures, stroke, NV. No hx of blood clots or blood transfusions Physical Exam Vital Signs VITALS BP 112/64 P 76 TEMP 97.9 SP02 96% RESP 16 Constitutional no acute distress ENMT Mouth: no TMJ clicking Thyromental Distance: > or= 3.5 Finger Breadths (3.5) Mallampati Class: III Partial upper denture Missing bottom side teeth/molars Neck neck extension not limited Respiratory normal respiratory effort; no respiratory distress Auscultation: lungs clear to auscultation bilaterally; no wheezes Cardiovascular Rate/Rhythm: regular rate and regular rhythm Heart Sounds: no murmur Vessels: no carotid bruit Musculoskeletal Spine: no pain with cervical ROM Extremities: extremities normal to inspection Psychiatric Orientation: alert Lab Results Anesthesia Preop Results Results Anesthesia Widget: WBC 8.40 K/ul (4.8-10.8) 02/08/23 Hgb 11.7 g/dl (12.0-16.0) L 02/08/23 Hct 35.2 % (37.0-47.0) L 02/08/23 Plt 321 K/uL (130-400) 02/08/23 Na 139 mmol/L (136-145) 02/08/23 K 4.0 mmol/L (3.5-5.1) 02/08/23 Cl 104 mmol/L (98-107) 02/08/23 CO2 29 mmol/L (21-32) 02/08/23 BUN 29 mg/dl (6-23) H 02/08/23 Creat 1.07 mg/dl (0.6-1.2) 02/08/23 Glucose Level 103 mg/dl (70-99(Fasting)) H 02/08/23 PT 10.4 Seconds (9.0-12.0) 02/08/23 PTT 28.2 Seconds (21.0-31.0) 02/08/23 INR 1.0 (0.9-1.1) 02/08/23 Blood Type O Positive 02/08/23 Antibody Screen NEGATIVE 02/08/23 Testing Electrocardiogram Date: 02/08/23 Findings: + NSR @ (73bpm ) Low voltage QRS Chest X-Ray Date: 02/08/23 Findings: + NAD COVID-19 Risk Screen Screening Information COVID-19 Screen Date: 02/08/23 Exposure 21 Days Family/Household +COVID Last 21 Days: No Exposure 10 Days Any COVID Exposure Last 10 Days: No Symptoms Last 10 Days Experienced COVID Sx Last 10 Days: No + COVID 0-90 Days COVID + in Last 0-90 Days: No Risk Plan COVID Risk Plan: No Risk Identified Patient Education COVID Preop Screening Education Complete: Yes
--- NOTE | 2023-03-05 13:45 | History and Physical Report ---
CHIEF COMPLAINT: Right knee pain. HISTORY OF PRESENT ILLNESS: The patient is a 68-year-old female who presents now for surgical treatm ent of her right knee. She has a long history of right knee pain and discomfort that has gotten wors e over time. She has got multiple musculoskeletal aches and pains, but the knee is bothering her the most. She describes lateral knee pain. Increased with weightbearing. The more she is up and down, more it hurts. She has been through injections, which were successful initially, but has become les s successful over time. She would like to have her right knee replaced. PAST MEDICAL HISTORY: 1. Hypertension. 2. Elevated cholesterol. 3. Obesity with a BMI of 39. 4. Kidney stones. PREVIOUS SURGERIES: None. ALLERGIES: None. CURRENT MEDICATIONS: 1. Tylenol. 2. Vitamin D3. 3. Citalopram. 4. Colace. 5. Iron. 6. Oxycodone. 7. Metamucil. 8. Lisinopril/hydrochlorothiazide. SOCIAL HISTORY: A 68-year-old female. She is . Does not smoke. FAMILY HISTORY: Noncontributory. REVIEW OF SYSTEMS: Negative for diabetes, neurologic problem, vascular problems or bleeding disorder s. No chest pain or shortness of breath. No history of DVT or PE. She is obese. PHYSICAL EXAM: GENERAL: Shows a pleasant middle-aged female, looks in reasonably good health. HEENT: Benign. NECK: Supple. No lymphadenopathy. LUNGS: Clear to auscultation. HEART: Has a regular rate and rhythm. ABDOMEN: Soft, nontender, nondistended. EXTREMITIES: Grossly neurovascularly intact except as follows. Examination of the right knee reveals the patient ambulates independently. She has got valgus alignm ent to her knee. The valgus alignment is increased with weightbearing. Moderate soft tissue envelop e. Range of motion 0-125. No instability. She does have some tenderness over the greater trochante r bursa. Normal hip motion. X-RAYS: X-rays of the right knee previously reviewed. It shows advanced right knee lateral compartm ent DJD. She has complete loss of her lateral joint space. She has subchondral sclerosis and osteop hytes laterally. ASSESSMENT: A 68-year-old female with multiple comorbidities including hypertension, elevated choles terol, obesity and kidney stones with advanced right knee degenerative joint disease. She also has s ome ankle and shoulder problems, which are being treated conservatively. She is hoping to have her k nee replaced. PLAN: We will take her to the operating room and do right total knee replacement. The risks and maricruz efits of this procedure were explained to the patient and include but not limited to DVT, PE, , infection, neurological injury, vascular injury, bleeding problem, pain, limited range of motion, sti ffness, failure to relieve her symptoms, incomplete relief of symptoms, need for further surgery in t he future, etc. The patient understands and desires to proceed. Informed consent was obtained. As far as discharge plans, she is planning to be discharged to home using [facility]. Job ID: [id number]
[~2023-03-09 10:05] MED LIST changes: -ACET-1138 PO; +ACETAMINOPHEN 1,000 MG/100 ML VIAL IV STA; +ACETAMINOPHEN 500 MG TAB PO SCH; -ASPEC325 PO; +ATROPINE SULFATE 0.1 MG/ML 10ML SYR IV PRN; +BUPIVACAINE 0.25% PF 30 ML VIAL ONE; +BUPIVACAINE 0.5 % 5 MG/1 ML PF 10ML VIAL ONE; +BUPIVACAINE LIPOSOME/PF 266 MG, BUPIVACAINE/EPINEPHRINE 50 ML, SODIUM CHLORIDE 0.9% PF ... INFIL SCH; -CHOL1CAP57 PO; -CITA20TA4 PO; +CeleBREX 200 MG CAP PO SCH; -DOCU100C PO; +FAMOTIDINE 20 MG TAB PO SCH; -FRRG PO; -LISI-788 PO; +LR 500ML BOLUS, THEN 15ML/HR IV SCH; +LR 60ML/HR IV SCH; +METOCLOPRAMIDE HCL 10 MG TABLET PO SCH; -NAPR1TAB48 PO; +ONDANSETRON INJ 2 MG/ML 2 ML VIAL IV PRN; -PSYL0.524 PO; +ROPIVACAINE 0.5% 5 MG/ML 30 ML VIAL ONE; -RXC5 PO; +Scopolamine 1 MG TDSY TD SCH; +TRANEXAMIC ACID 1,000 MG **IV Intra-op IV SCH; +ceFAZolin 2000MG 2,000 MG/15 ML SYR IV SCH; +ePHEDrine sulfate 50 MG/ML AMP IV PRN; +fentaNYL citrate PF 100 MCG/2 ML VIAL IV PRN
--- NOTE | 2023-03-09 11:13 | History & Physical Bridge Note ---
Date of Service March 09, 2023 History & Physical Bridge Note I have examined the patient, reviewed the History & Physical and in the interval since the performance of the History & Physical I have noted the following changes of clinical significance: no changes noted
[2023-03-09] MEDS ORDERED: BUPIVACAINE 0.5 % 5 MG/1 ML PF 10ML VIAL ONE (11:49)
[2023-03-09] MEDS ORDERED: BUPIVACAINE/EPINEPHRINE 0.25% 1:200,000 30 ML VIAL ONE (12:20)
[2023-03-09] MEDS ORDERED: SODIUM CHLORIDE 0.9% PF 50 ML VIAL ONE (12:21)
[2023-03-09] MEDS ORDERED: BUPIVACAINE LIPOSOME 1.3% 266 MG/20 ML VIAL ONE (12:21)
[2023-03-09] MEDS ORDERED: fentaNYL citrate PF 100 MCG/2 ML VIAL ONE (12:27)
[2023-03-09] MEDS ORDERED: MIDAZOLAM HCL 1 MG/ML 2ML VIAL ONE (12:27)
[2023-03-09] MEDS ORDERED: MoRPHine SULFATE PF 1 MG/ML 10 ML AMP/VIAL ONE (12:52)
[2023-03-09] MEDS ORDERED: DEXAMETHASONE SOD INJ 4 MG/ML VIAL ONE (13:24)
[2023-03-09] MEDS ORDERED: PHENYLEPHRINE HCL 10 MG/ML VIAL ONE (13:34)
[2023-03-09] MEDS ORDERED: ePHEDrine sulfate 50 MG/ML SYR ONE (13:34)
[2023-03-09] MEDS ORDERED: diphenhydrAMINE 50 MG/ML VIAL ONE (14:14)
[2023-03-09] MEDS ORDERED: ONDANSETRON INJ 2 MG/ML 2 ML VIAL ONE (14:14)
--- NOTE | 2023-03-09 14:48 | Operative Report ---
PG Post Operative Report Pre & Post Diagnosis Operation Date: 03/09/23 12:30 Pre-Op Diagnosis: Right Knee Advanced Degenerative Joint Disease Post-Op Diagnosis: Right Knee Advanced Degenerative Joint Disease I identified the patient and participated in the time-out.: Yes Procedure Operation Date: 03/09/23 12:30 Actual Procedures p Right Total Knee Arthroplasty(Right) - Tyson Rankin MD Surgeon Tyson Rankin MD [employer] Specialist Klever Colon PA-C Estimated Blood Loss 50 Findings Consistent with Post-Op Diagnosis Operative findings were advanced right knee tricompartment DJD. She had extensive grade 4 changes in all 3 compartments most severe laterally with eburnation of the lateral compartment. She had a valgus deformity to her knee with tight lateral structures. Moderate-sized joint effusion. Specimens Right knee sent for pathology Drains None Anesthesia Type Spinal MAC Complications none Disposition Accompanied Patient To Recovery: No Indications Patient is a 68-year-old female has had a fairly long history of right knee pain discomfort with describes gotten worse over time. She been through extensive conservative treatment which became less successful over time. X-rays show advanced right knee lateral compartment DJD. She elected to proceed with total knee arthroplasty. Description of Procedure Operative implants consist of: 1 Biomet Vanguard size 70 right posterior stabilized femoral component. 2. Biomet size 71 tibial tray. 3. 14 mm posterior stabilized polyethylene insert. 4. 31 x 8 all poly patella. The patient was taken the operating, identified, placed on the operating table supine position but all contact areas were appropriately padded. IV antibiotics tried by anesthesia team. A spinal anesthetic had been implemented in the holding area. Zhao catheter was placed in sterile fashion. Right thigh tent was then placed in the right lower extremities then prepped and draped in usual sterile fashion. The right leg was elevated exsanguinated with use of an Esmarch and the tourniquet was set at 300 mmHg. An anterior approach to the right knee was then performed through a longitudinal incision centered over the patella. Sharp dissection was carried through subcutaneous tissues down the extensor mechanism. A medial parapatellar arthrotomy incision was made. Some subperiosteal dissection was carried out medially. The fat pad was dissected from Neath patella tendon. The lateral patellofemoral ligament was released. The patella was subluxated laterally and the knee was flexed with the osteophytes taken on distal femur. The ACL and PCL released from the distal femur the tibia subluxated anteriorly. External tibial alignment jig was then placed in the interface the tibia and adjusted 12 mm medially. Proximal tibial cut was made remove about 3 to 4 mm of bone from the medial side. The tibia sized to a size 71. Attention drawn the femur. The distal femur was then with a sharp drill. Intramedullary canal was suction. A right 5 degree valgus cutting guide was placed. Distal femoral cutting block was pinned in place. Distal femoral cut was made to take an additional 3 mm of bone off distal femur. The knee was brought out in extension and I did some pie crusting of the IT band in order to equalize the extension gap. The knee was flexed. The femur was then sized to a size 70. The AP cutting block was pinned parallel to the epicondylar axis which was 5 degrees of external rotation. Anterior cut, anterior chamfer, posterior cut, posterior chamfer cuts were made. The box cutting guide was placed in just slight lateral and the box cut was made. The knee was flexed. The remnants of the medial and lateral menisci were excised. The popliteus was released in order to equalize the flexion gap. Trial femoral component was placed. The tibial tray was pinned in maximum external rotatio and the drill and stem punch were used to create defect in proximal tibia for the tibial tray. The knee was then trialed and the 14 mm insert fit most appropriately. Attention drawn the patella. The patella was cleaned of all soft tissues. Patella thickness measured 20 mm in thickness and was cut down to 13. It was sized to a size 31 patella. The lug holes were drilled for the 31 patella. The lateral osteophyte was removed. Patella button was placed. Knee was taken through range of motion and the patella tracked nicely with no thumbs test. Attention drawn to placing permanent components. All trial components were removed. Bone plug was placed in the distal femur limit blood loss. Double batch Palacos G cement was mixed. A Biomet Vanguard size 70 right posterior stabilized femoral component, a size 71 tibial tray, a 14 mm posterior stabilized polyethylene insert, and 31 x 8 all Paller patella then cemented in place. Knee was brought out in full extension till cement hardened. Final cement check was then performed. The pericapsular tissues were injected with total 100 cc of combination of 20 cc of Exparel, 30 cc normal saline, 50 cc of quarter percent Marcaine with epinephrine. Patient did receive 1 g tranexamic acid but the tourniquet was let down for final tourniquet time 55 minutes. Hemostasis assured use electrocautery. The extensor mechanism then closed with a combination of 1 PDS and #1 Vicryl suture in a [id number] fashion. Extensor mechanism checked found to be intact with subcutaneous tissue then closed with 2 Dexon suture in buried fashion skin was closed skin ryan. Leg was then cleaned and dried and sterile dressing was Xeroform, 4 fours, sterile cast padding, Wade bandage were applied. Patient then transferred to the recovery room in stable condition. Patient tolerated the procedure well and there are no complications. Klever Colon, my physician law office assistant, was present for the entire procedure. His assistance was essential and required for appropriate patient positioning, prepping and draping, surgical exposure, performing the technical details of the operation, placement the implants, closure of the wound, and placement of the sterile bandage. I attest to the content of the Intraoperative Record and any orders documented therein. Any exceptions are noted below.
[2023-03-09] MEDS ORDERED: ePHEDrine sulfate 50 MG/ML AMP IV PRN (14:56)
[2023-03-09] MEDS ORDERED: NALOXONE HCL 1 MG in SODIUM CHLORIDE 0.9% 1000ML 1,000 ML IV PRN (14:56)
[2023-03-09] MEDS ORDERED: NALOXONE HCL 0.08 MG in SYRINGE 1.8 ML IV PRN (14:56)
[2023-03-09] MEDS ORDERED: NALBUPHINE HCL INJ 10 MG/ML AMP IV PRN (14:56)
[2023-03-09] MEDS ORDERED: MoRPHine SULFATE PF 1 MG/ML 10 ML AMP/VIAL INT SPINAL ONE (14:56)
[2023-03-09] MEDS ORDERED: NALOXONE HCL 0.4 MG/1 ML VIAL/CARP IV PRN ×2 (14:56→16:40)
[2023-03-09] MEDS ORDERED: diphenhydrAMINE 50 MG/ML VIAL IV PRN (14:56)
[2023-03-09] MEDS ORDERED: LACTATED RINGER'S 500 ML IV PRN (14:56)
--- NOTE | 2023-03-09 14:59 | Anesthesiology Progress Note ---
Date of Service March 09, 2023 Anesthesia Post Procedure Vital Signs Vital Signs: Temp Pulse Resp BP Pulse Ox O2 Del Method 03/09/23 10:46 36.8 C 78 20 144/80 H 95 Room Air Transfer of Care Handoff Completed per policy Notes Mental Status: alert / awake / arousable Patient Amnestic to Procedure: Yes Nausea / Vomiting: adequately controlled Pain: adequately controlled Airway Patency, RR, SpO2: stable & adequate BP & HR: stable & adequate Hydration State: stable & adequate Neuraxial Anesthesia: was administered and sensory block is resolving Anesthetic Complications: no major complications apparent and Pt Satisfied with anesthetic care
[2023-03-09] MEDS ORDERED: NO NARCOTICS OR SEDATIVES SCH (15:00)
[2023-03-09] MEDS ORDERED: DC INTRASPINAL MORPHINE SCH (15:00)
[2023-03-09] MEDS ORDERED: SODIUM CHLORIDE 0.9% 1000ML 1,000 ML IV SCH (15:00)
--- NOTE | 2023-03-09 15:04 | XRay Report ---
XR knee RT 1 or 2V routine HISTORY: 68 years-old Female Surgical Post Op right knee total joint arthroplasty COMPARISON: Knee radiographs 11/26/2022 TECHNIQUE: 2 views of the right knee FINDINGS: Total joint arthroplasty with patellar resurfacing. Anterior midline skin ryan are noted along wit h expected postoperative soft tissue swelling with deep tissue air. Lower extremity varicosities. No acute fracture, dislocation or unexpected opaque foreign body. IMPRESSION: Total joint arthroplasty with expected postoperative changes. ACT 112: Negative or not required by law. The above report was generated using voice recognition software. It may contain grammatical, syntax o r spelling errors. Electronically signed by: Grupo Lisa M.D. 03/09/2023 3:02 PM
[2023-03-09] MEDS ORDERED: ALUMINUM/MAGNESIUM SUSP 30 ML UDC PO PRN (16:40)
[2023-03-09] MEDS ORDERED: bisacodyL 10 MG SUPP PR PRN (16:40)
[2023-03-09] MEDS ORDERED: MAGNESIUM HYDROXIDE SUSP 30 ML UDC PO PRN (16:40)
[2023-03-09] MEDS: Scopolamine CHECK PATCH PLACEMENT SCH (17:16)
[2023-03-09] MEDS: SODIUM CHLORIDE 0.9% 1000ML 1,000 ML IV SCH (17:49)
[2023-03-09] MEDS: ASCORBIC ACID 500 MG TAB PO SCH (18:13)
[2023-03-09] MEDS ORDERED: TRANEXAMIC ACID / 0.7% NACL 1,000 MG/100 ML BAG IV SCH (20:45)
[2023-03-09] MEDS: ceFAZolin 2000MG 2,000 MG/15 ML SYR IV SCH (20:46)
[2023-03-09] MEDS: ASPIRIN 81 MG ECTAB PO SCH (20:47)
[2023-03-09] MEDS: SENNA 8.6 MG TAB PO SCH (20:47)
[2023-03-09] MEDS: ACETAMINOPHEN 500 MG TAB PO SCH (20:53)
[2023-03-09] MEDS ORDERED: SENNA 8.6 MG TAB PO SCH (21:00)
[2023-03-09] MEDS ORDERED: MAGNESIUM OXIDE 400 MG TAB PO SCH (21:00)
[2023-03-09] MEDS ORDERED: CITALOPRAM 40 MG TAB PO SCH (21:00)
[2023-03-09] MEDS ORDERED: ATORVASTATIN 20 MG TAB PO SCH (21:00)
[2023-03-09] MEDS ORDERED: DOCUSATE SODIUM 100 MG CAP PO SCH (21:00)
[2023-03-10] MEDS: Scopolamine CHECK PATCH PLACEMENT SCH ×2 (00:24→08:33)
[2023-03-10] MEDS: ceFAZolin 2000MG 2,000 MG/15 ML SYR IV SCH (03:46)
[2023-03-10] MEDS: SODIUM CHLORIDE 0.9% 1000ML 1,000 ML IV SCH (03:51)
[2023-03-10 06:58] LABS: Hematocrit (blood only) 30.2 % (37.0-47.0); Hemoglobin 9.7 g/dl (12.0-16.0); Mean Corpuscular Hemoglobin 30.4 pg (25.0-34.0); Mean Corpuscular Hgb Conc 32.1 g/dL (32.0-36.0); Mean Corpuscular Volume 94.7 fL (80.0-100.0); Mean Platelet Volume 9.7 fL (9.4-12.4); Platelet Count 313 K/uL (130-400); RDW Coefficient of Variation 12.6 % (11.5-14.5); RDW Standard Deviation 43.8 fL (36.4-46.3); Red Blood Count 3.19 M/uL (4.20-5.40); White Blood Count 12.29 K/ul (4.8-10.8)
[2023-03-10 07:11] LABS: BUN Creatinine Ratio 30.6 (10-20); Calcium 8.7 mg/dl (8.6-10.3); Creatinine Clr Calc Pharmacy 56.3 ml/min; Est GFR (African American) 53.6 ml/min; Est GFR (Non-African American) 46.3 ml/min; Potassium 4.5 mmol/L (3.5-5.1)
[2023-03-10] MEDS ORDERED: dexAMETHasone 10 MG in SYRINGE 0 ML IV SCH (08:00)
[2023-03-10] MEDS: ASCORBIC ACID 500 MG TAB PO SCH (08:33)
[2023-03-10] MEDS: ASPIRIN 81 MG ECTAB PO SCH (08:33)
[2023-03-10] MEDS: SENNA 8.6 MG TAB PO SCH (08:34)
[2023-03-10] MEDS: ACETAMINOPHEN 500 MG TAB PO SCH (08:34)
[2023-03-10] MEDS ORDERED: METOCLOPRAMIDE HCL INJ 5 MG/ML 2 ML VIAL IV PRN (08:57)
[2023-03-10] MEDS ORDERED: oxyCODONE HCL IR 5 MG TAB (IMMEDIATE RELEASE) PO PRN (08:57)
[2023-03-10] MEDS ORDERED: ONDANSETRON INJ 2 MG/ML 2 ML VIAL IV PRN (08:57)
[2023-03-10] MEDS ORDERED: HYDROmorphone INJ 0.5 MG/0.5 ML SYR IV PRN (08:57)
[2023-03-10] MEDS ORDERED: DOCUSATE SODIUM 100 MG CAP PO SCH (09:00)
[2023-03-10] MEDS ORDERED: MULTIVITAMIN TAB PO SCH (09:00)
[2023-03-10] MEDS ORDERED: LISINOPRIL/HCTZ 20/25MG 1 TAB PO SCH (09:00)
[2023-03-10] MEDS ORDERED: PSYLLIUM or GUAR GUM FIBER POWDER PACKET PO SCH (09:00)
[2023-03-10] MEDS ORDERED: NON-FORMULARY MEDICATION (Multivitamin Tablet) PO SCH (09:00)
[2023-03-10] MEDS ORDERED: KETOROLAC TROMETHAMINE 15 MG/ML VIAL IV SCH (12:00)
--- NOTE | 2023-03-10 14:04 | Progress Notes ---
DATE OF SERVICE: 03/10/2023 SUBJECTIVE: A 68-year-old white female, postoperative day 1 from right knee replacement. She is doi ng pretty well. Pain is controlled. Therapy has gone pretty well. No chest pain or shortness of br eath. Not feeling dizzy or lightheaded. OBJECTIVE: VITAL SIGNS: Temperature 36.4. Vital signs are stable. PHYSICAL EXAMINATION: GENERAL: Shows a pleasant middle-aged female. She is sitting up in bed and looks pretty comfortable . LUNGS: Clear to auscultation. HEART: Regular rate and rhythm. ABDOMEN: Soft, nontender, nondistended. EXTREMITIES: Grossly neurovascularly intact except as follows: Examination of the right leg reveals the dressing to be clean, dry and intact. She can dorsiflex and plantarflex her foot appropriately. She can do a pretty good straight leg raise. LABORATORY DATA: Hemoglobin 9.7. Hematocrit 30.2. Electrolytes are stable. Creatinine is just sli ghtly elevated. ASSESSMENT: A 68-year-old white female, postoperative day 1 from right knee replacement, doing prett y well. Pain is controlled. She is neurologically intact. She is hoping to go home. PLAN: 1. DVT prophylaxis includes thigh-high TEDs, SCDs, and aspirin twice a day. 2. PT/OT, weightbear as tolerated. Right total knee protocol. 3. Pain control, doing okay with current pain regimen. 4. Slightly elevated creatinine. We are going to hold her Toradol for now and just encourage oral i ntake. 5. Disposition: She is planning to be discharged to home with some home health. She is hoping to g o home today and we will plan on that. She will follow up in the clinic in 2 weeks. Job ID: [id number]
--- NOTE | 2023-03-15 07:51 | Discharge Summary ---
Date of Service March 15, 2023 Discharge Data Procedures Performed Operation Date: 03/09/23 12:30 Actual Procedures p Right Total Knee Arthroplasty(Right) - Tyson Rankin MD Hospital Course (1) Status post total right knee replacement: This is a 68 year old patient admitted on 03/09/23 and underwent total knee arthroplasty. She tolerated the procedure well and there were no complications. Transferred to the PACU post op and later to the orthopedic floor for further care. She was given ancef for antibiotic prophylaxis. She was also given YON stockings, SCDs, and aspirin for DVT prophylaxis. Hemoglobin, hematocrit, and vital signs were monitored during her hospital stay and remained stable. Did not require any blood transfusions. There were no complications during her hospital stay. By post op day #1 the patient was tolerating a regular diet, pain was reasonably controlled with oral pain medicine, and she was participating in physical therapy. On post op day #1 the patient was discharged home and set up with home health care. She was given printed discharge instructions including prescriptions for extra strength tylenol, aspirin,cefadroxil, ketorolac, zofran, senokot, and oxycodone. Continue physical therapy, weight bearing as tolerated. Continue YON stockings. Follow up approximately 2 weeks post op or sooner if there are problems or concerns. Coding Level of Care Code None Diagnoses Status post total right knee replacement Z96.651
== END 2023-03-10 13:14 | disposition home health service (06) ==
LOC: PACUINP 10:05 → ASU 10:05 → 3E 16:37
DX: M17.11 Unilateral primary osteoarthritis, right knee; Z79.899 Other long term (current) drug therapy; M65.9 Synovitis and tenosynovitis, unspecified; Z68.39 Body mass index [BMI] 39.0-39.9, adult; Z79.82 Long term (current) use of aspirin; E66.9 Obesity, unspecified